=== PATIENT | male | born 1995 ===

== ENCOUNTER 2024-02-10 14:31 | Day surgery (SDC) | payer BC ==
[2024-02-10 16:20] LABS: BASOPHILS ABSOLUTE AUTO 0.04 K/uL (0.00-0.20); BASOPHILS PERCENT AUTO 0.3 % (0.0-1.0); EOSINOPHILS ABSOLUTE AUTO 0.13 K/uL (0.00-0.45); EOSINOPHILS PERCENT AUTO 1.1 % (0.0-6.0); HEMATOCRIT 43.9 % (42.0-52.0); HEMOGLOBIN 15.2 g/dL (14.0-18.0); IMMATURE GRAN ABSOLUTE AUTO 0.05 K/uL (0.00-0.05); IMMATURE GRAN PERCENT AUTO 0.4 % (0.0-0.4); LYMPHOCYTES ABSOLUTE AUTO 2.61 K/uL (1.00-4.80); LYMPHOCYTES PERCENT AUTO 22.3 % (24.0-44.0); MEAN CORPUSCULAR HGB CONC 34.6 g/dL (32.0-36.0); MEAN CORPUSCULAR VOLUME 86.8 fL (83.0-99.0); MONOCYTES ABSOLUTE AUTO 0.82 K/uL (0.00-0.80); NEUTROPHILS ABSOLUTE AUTO 8.03 K/uL (1.80-7.70); NEUTROPHILS PERCENT AUTO 68.9 % (41.0-71.0); PLATELET COUNT,PLT 227 K/uL (150-400); RED BLOOD CELL COUNT 5.06 M/uL (4.52-5.90); WHITE BLOOD CELL COUNT,WBC 11.68 K/uL (3.9-11.3)
[2024-02-10] MEDS: Ondansetron 4 MG/2 ML SDV IVPUSH ONE (16:37)
[2024-02-10] MEDS: Sodium Chloride 0.9% 10 ML Syringe FLUSH PRN (16:37)
[2024-02-10] MEDS: Sodium Chloride 0.9% 1,000 ML IV ONE (16:37)
[2024-02-10] MEDS: Sodium Chloride 0.9% 2.5 ML Syringe FLUSH PRN (16:38)
[2024-02-10 16:41] LABS: ALBUMIN 3.9 g/dL (3.4-5.0); BILIRUBIN TOTAL 0.8 mg/dL (0.2-1.0); CALCIUM 8.8 mg/dL (8.5-10.1); CARBON DIOXIDE,CO2 28.3 mmol/L (21.0-32.0); CREATININE 1.4 mg/dL (0.8-1.3); EST CRCL DRUG DOSING (CG) 77.85 mL/min; POTASSIUM,K 3.7 mmol/L (3.5-5.1); PROTEIN TOTAL,TP 7.7 g/dL (6.4-8.2)
[2024-02-10] MEDS: Iopamidol 755 MG/ML 500 ML Multipack Bottle IVPUSH STA (17:05)
[2024-02-10] MEDS: Piperacillin/Tazobactam 3.375 GM in Sodium Chloride 0.9% 100 ML IV ONE (18:24)
[2024-02-10] MEDS ORDERED: Water For Injection, Sterile 20 ML ONE ×2 (18:40→18:43)
[2024-02-10] MEDS ORDERED: dexmedeTOMIDine HCl 200 MCG/2 ML SDV ONE (18:40)
[2024-02-10] MEDS ORDERED: Morphine 10 MG/ML SDV ONE (18:40)
[2024-02-10] MEDS ORDERED: Bupivacaine 0.5% 30 ML SDV ONE (18:41)
[2024-02-10] MEDS ORDERED: Ropivacaine 0.5% 5 MG/ML 30 ML SDV ONE (18:42)
[2024-02-10] MEDS ORDERED: propofoL 50 ML ONE (18:44)
[2024-02-10] MEDS ORDERED: Ketamine HCL/NACL, ISO-OSM 50 MG/5 ML Syringe ONE (19:22)
[2024-02-10] MEDS ORDERED: fentaNYL 250 MCG/5 ML SDV ONE (19:37)
[2024-02-10] MEDS ORDERED: Dexamethasone 4 MG/ML 5 ML MDV ONE (20:01)
[2024-02-10] MEDS ORDERED: Ketorolac 30 MG/ML SDV ONE (20:01)
[2024-02-10] MEDS ORDERED: Ondansetron 4 MG/2 ML SDV ONE (20:01)
[2024-02-10] MEDS ORDERED: Sugammadex Sodium 200 MG/2 ML VIAL IV ONE (20:07)
[2024-02-10] MEDS ORDERED: Rocuronium Bromide 50 MG/5 ML Syringe ONE (20:07)
[2024-02-10] MEDS ORDERED: HYDROmorphone 0.5 MG/0.5 ML Syringe IVPUSH PRN (20:28)
[2024-02-10] MEDS ORDERED: Ondansetron 4 MG/2 ML SDV IVPUSH PRN (20:28)
[2024-02-10] MEDS ORDERED: Polyethylene Glycol 3350 Powder 17 GM Packet PO PRN (20:28)
[2024-02-10] MEDS ORDERED: diphenhydrAMINE 50 MG/ML SDV IVPUSH PRN (20:28)
[2024-02-10] MEDS: Ketorolac 30 MG/ML SDV IVPUSH SCH (22:08)
[2024-02-10] MEDS: Acetaminophen/oxyCODONE 325-5 MG Tab PO PRN (22:14)
[2024-02-10] MEDS ORDERED: Lidocaine 2% 11 ML Jelly Filled Syringe ONE (22:36)
== END 2024-02-11 09:30 | disposition home or self-care (01) ==
LOC: MW.ED 14:31 → MW.SDS 18:10 → MW.MS 21:36 → MW.SDS 02-11 09:30
PROVIDERS: ATTEND Surgery
DX: K35.33 Acute appendicitis with perforation, localized peritonitis, and gangrene, with abscess (principal); D68.1 Hereditary factor XI deficiency; E03.9 Hypothyroidism, unspecified; Z79.890 Hormone replacement therapy
CPT/HCPCS: 36415; 44970; 64486; 74177; 80053; 83690; 85025; 86850; 86900; 86901; 96361; 96365; 96375; 99285; A9270; J0131; J0665; J1100; J1885; J2270; J2405; J2543; J2704; J2795; J3010; J3490; J7030; Q9967; 00840